=== PATIENT | female | born 1995 | race Caucasian/White ===

== ENCOUNTER → 2018-04-22 | Outpatient (CLI) | payer BC, OTHER ==
[~2018-04-22] MED LIST: HYDR-3730 PO
--- NOTE | 2018-04-22 14:43 | Diagnostic Imaging Report ---
INDICATION: Palpable lumps in the retroareolar left breast as well as the upper outer left breast. The current study was also evaluated with a Computer Aided Detection (CAD) system. No prior studies are available for comparison. 2-D and 3-D unilateral left diagnostic mammography was performed including CC, MLO, mediolateral and exaggerated cc views. In addition a right MLO view was performed. Both breasts are heterogeneously dense, limiting sensitivity of mammography. There is a circumscribed mass in the upper outer left breast approximately 17 mm in diameter and 7 cm from the nipple near the BB marker. A second ovoid mass in the retroareolar left breast is seen. This is circumscribed in approximately 23 mm in size. These may represent cyst. No other masses are seen. No suspicious microcalcifications or lesions are identified. The axilla are unremarkable. IMPRESSION: BI-RADS zero Left breast circumscribed masses, as described. Further evaluation with ultrasound is recommended. ACR BI-RADS Category 0: Incomplete. (Needs additional imaging evaluation). Result letter will be mailed to the patient. Note: At least 10% of breast cancer is not imaged by mammography. Dictated by: Dictated on workstation # [id number]
--- NOTE | 2018-04-22 18:44 | Diagnostic Imaging Report ---
INDICATION: Left breast masses. COMPARISON: Correlation is made with diagnostic mammogram earlier the same day. EXAMINATION: Sonographic interrogation of the left breast was performed. All four quadrants and the retroareolar region were evaluated. FINDINGS: There are numerous circumscribed solid masses throughout the left breast. A mass at the 2 o'clock location, 7 cm from the nipple, measures 1.7 x 1.2 x 1.5 cm. This does show some internal vascularity and does correspond to a palpable lump by the patient. This does appear to be macrolobulated. At the 3:30 location, 7 cm from the nipple, there is a 1.4 x 0.6 x 1.3 cm nodule. This too appears to be solid. Minimal internal vascularity is present. At the 11 o'clock retroareolar location there is an ovoid circumscribed solid mass, measuring 2.3 x 0.9 x 1.8 cm. This does correspond to a palpable nodule by the patient. At the 12 o'clock location, 4 cm from the nipple, there is a 1.5 x 0.6 x 1.0 cm circumscribed solid nodule. No cystic masses are seen. No other abnormality is seen. IMPRESSION: Multiple circumscribed solid masses are identified in the left breast. These are most consistent with multiple fibroadenomas. The nodule at the 2 o'clock and 11 o'clock locations correspond to the patient's palpable abnormalities. Patient should return in six months for additional left breast ultrasound to confirm stability. ACR BI-RADS Category 3: Probably benign findings. Result letter will be mailed to the patient. Note: At least 10% of breast cancer is not imaged by mammography. Dictated by: Dictated on workstation # [id number]
== END ==
LOC: RAD 14:08
PROVIDERS: ATTEND Nurse Practitioner
DX: N63.20 Unspecified lump in the left breast, unspecified quadrant (principal); N63.21 Unspecified lump in the left breast, upper outer quadrant
CPT/HCPCS: 76641

== ENCOUNTER → 2018-10-05 | Outpatient (CLI) | payer OTHER, BC ==
--- NOTE | 2018-10-05 10:25 | Diagnostic Imaging Report ---
INDICATION: Left breast nodules. This study is performed for followup. COMPARISON: Correlation is made with a left breast ultrasound from 04/22/2018. FINDINGS: Multiple circumscribed hypoechoic solid masses in the left breast are again noted. A nodule at the 2 o'clock location 7 cm from the nipple is stable at approximately 18 mm x 12 mm x 17 mm compared to 17 mm x 12 mm x 15 mm previously. A nodule at the 3:30 location 7 cm from the nipple measures approximately 16 mm x 9 mm x 12 mm compared with 14 mm x 6 mm x 13 mm previously. A lobulated nodule at the 12 o'clock location 4 cm from the nipple measures 15 mm x 6 mm x 9 mm compared with 15 mm x 6 mm x 10 mm previously. The nodule at the 11 o'clock location retroareolar measures 24 mm x 9 mm x 20 mm compared to 23 mm x 9 mm x 18 mm previously. No new mass is seen. IMPRESSION: Overall stable solid nodules in the left breast suggestive of fibroadenomas when compared with the exam from 04/22/2018. An additional 6 month followup is recommended to confirm stability. ACR BI-RADS Category 3: Probably benign findings. Dictated by: Dictated on workstation # [id number]
== END ==
LOC: RAD 08:56
PROVIDERS: ATTEND Nurse Practitioner
DX: N63.0 Unspecified lump in unspecified breast (principal)
CPT/HCPCS: 76642

== ENCOUNTER → 2019-04-26 | Outpatient (CLI) | payer OTHER, BC ==
--- NOTE | 2019-04-26 12:09 | Diagnostic Imaging Report ---
INDICATION: Left breast masses. Patient presents for six-month followup. COMPARISON: 10/05/2018. FINDINGS: Four circumscribed lobulated hypoechoic solid masses in the left breast are again noted, suggestive of fibroadenomas. A mass at the 11 o'clock location 1 cm from the nipple measures 2.1 x 2.3 x 1.0 cm compared with 2.3 x 1.0 x 2.1 cm previously. A nodule at the 12 o'clock location 4 cm from the nipple measures 1.6 x 0.6 x 1.0 cm, unchanged from the prior exam. A second nodule at 12 o'clock measures 1.7 x 1.5 x 1.2 cm compared with 1.8 x 1.8 x 1.2 cm on the prior exam. The 3:30 location mass 7 cm from the nipple measures 1.5 x 1.1 x 1.1 cm, stable. No new mass is seen. IMPRESSION: Stable solid nodules in the left breast, consistent with fibroadenomas. These now show 1 year of stability. An additional 6 month followup is recommended to show continued stability. ACR BI-RADS Category 3: Probably benign findings. Dictated by: Dictated on workstation # [id number]
== END ==
LOC: RAD 09:12
PROVIDERS: ATTEND Obstetrics & Gynecology
DX: N63.22 Unspecified lump in the left breast, upper inner quadrant (principal); N63.23 Unspecified lump in the left breast, lower outer quadrant; N60.12 Diffuse cystic mastopathy of left breast
CPT/HCPCS: 76642

== ENCOUNTER → 2019-11-25 | Outpatient (CLI) | payer BC, OTHER ==
--- NOTE | 2019-11-25 10:47 | Diagnostic Imaging Report ---
INDICATION: Six-month followup of left breast nodules. Correlation is made with prior ultrasound from 04/26/2019. There are numerous, macrolobulated solid nodules within the left breast. The largest nodule is located 11 o'clock location 1 cm from the nipple. This has increased in size measuring 2.7 x 1.1 x 2.1 cm compared with 2.1 x 1.0 x 2.3 cm. Solid nodule 12 o'clock location 7 cm from the nipple measures 1.6 x 1.2 x 1.7 cm compared with 1.7 x 1.2 x 1.5 cm. Smaller nodule 12 o'clock location 4 cm from the nipple measures 1.0 x 0.6 x 1.6 cm compared with 1.0 x 0.6 x 1.6 cm on prior. 3:30 nodule 7 cm from the nipple measures 1.4 x 1.2 x 1.3 cm compared with 1.5 x 1.1 x 1.1 cm. No new mass is detected. IMPRESSION: BI-RADS Category 3 Numerous macrolobulated, solid nodules involving the left breast, as described, most suggestive of fibroadenomas. The dominant nodule at 11 o'clock location does show some increase in size. The patient reportedly is and this could be owing to response to hormones. Remaining nodules demonstrate 18 months of stability. One additional six-month followup ultrasound exam is recommended to confirm 2 years of stability. Consideration could be given to performance of an ultrasound-guided biopsy of the dominant nodule at 11 o'clock location. ACR BI-RADS Category 3: Probably benign findings. Result letter will be mailed to the patient. Note: At least 10% of breast cancer is not imaged by mammography. Dictated by: Dictated on workstation # [id number]
== END ==
LOC: RAD 09:23
PROVIDERS: ATTEND Obstetrics & Gynecology
DX: N63.20 Unspecified lump in the left breast, unspecified quadrant (principal); N60.12 Diffuse cystic mastopathy of left breast
CPT/HCPCS: 76642

== ENCOUNTER → 2020-02-09 | Outpatient (CLI) | payer OTHER ==
--- NOTE | 2020-02-09 15:15 | Diagnostic Imaging Report ---
INDICATION: survey. TECHNIQUE: Multiple real-time grayscale images were obtained over the gravid uterus. COMPARISON: None. FINDINGS: There is a single live fetus in a cephalic presentation. heart rate was recorded at 142 BPM. Placenta is anterior. Amniotic fluid volume is normal. Cervical length is 3.6 cm. kidneys, bladder, and stomach are unremarkable. brain is unremarkable. There is a four-chamber heart. There is a three-vessel cord with normal insertion. The spine is unremarkable. Maternal adnexa was not evaluated. Biometrical measurements are as follows: Biparietal 5.05 cm, age 21 weeks 3 days. Head circumference 18.89 cm, age 21 weeks 2 days. Abdominal circumference 15.85 cm, age 21 weeks 0 days. Femur length 3.71 cm, age 21 weeks 6 days. Sonographic estimate age: 21 weeks 3 days. Sonographic estimated date of delivery: 06/18/2020. Estimated Weight: 417 gm (+/- 61 gm). LMP percentile: 79%. heart rate: 142 beats per minute. number: 1 of 1. IMPRESSION: Single live IUP of 21 weeks 3 days gestational age. The estimated date of confinement sonographically is 06/18/2020. Dictated by: Dictated on workstation # [id number]
== END ==
LOC: RAD 11:35
PROVIDERS: ATTEND Obstetrics & Gynecology
DX: Z36.9 Encounter for antenatal screening, unspecified (principal); Z3A.21 21 weeks gestation of pregnancy
CPT/HCPCS: 76805

== ENCOUNTER 2020-06-28 18:52 | Inpatient (IN) | payer OTHER, BC ==
[~2020-06-28] VITALS: Ht 165.1 cm; Wt 105.4 kg
--- NOTE | 2020-06-28 19:05 | NUR ---
ANTHONY ALDANA 39/ presented to [facility] ED, accompanied by eduardo, for INDUCTION. ANTHONY ALDANA weighed, gowned, voided, and to bed. EFHM and TOCO applied, VS taken. ANTHONY ALDANA oriented to bed controls, call light, TV, heat, and A/C controls.
[2020-06-28] MEDS ORDERED: MINERAL OIL CONCENTRATE 99.9% 15 ML UDC TOP PRN (19:30)
[2020-06-28] MEDS ORDERED: MISOPROSTOL 100 MCG (CYTOTEC) TAB PO NR (19:30)
[2020-06-28] MEDS: D5 LR IV SOLUTION 1,000 ML IV SCH ×2 (20:02→23:42)
[2020-06-28 20:23] LABS: BASOPHILS % (AUTO) 0 % (0-10); EOSINOPHILS # (AUTO) 0.1 10^3/uL (0.0-0.3); EOSINOPHILS % (AUTO) 1 % (0-10); HEMATOCRIT 37 % (35-52); HEMOGLOBIN 12.9 G/DL (11.5-16.0); LYMPHOCYTES # (AUTO) 1.8 X 10^3 (1.0-4.0); LYMPHOCYTES % (AUTO) 18 % (12-44); MEAN CORPUSCULAR HEMOGLOBIN 32 PG (25-34); MEAN CORPUSCULAR HGB CONC 35 G/DL (32-36); MEAN CORPUSCULAR VOLUME 92 FL (80-99); MEAN PLATELET VOLUME 11.9 FL (7.4-10.4); MONOCYTES # (AUTO) 0.4 X 10^3 (0.0-1.0); MONOCYTES % (AUTO) 4 % (0-12); NEUTROPHILS # (AUTO) 7.7 X 10^3 (1.8-7.8); NEUTROPHILS % (AUTO) 77 % (42-75); PLATELET COUNT 184 10^3/uL (130-400); RED CELL DISTRIBUTION WIDTH 12.8 % (10.0-14.5)
[2020-06-28 20:30] VITALS: BP 118/89
[2020-06-28 21:09] VITALS: BP 125/85
[2020-06-28 21:48] VITALS: BP 124/78
[2020-06-28] MEDS ORDERED: CATHETER FLUSH 10 ML SYR IV SCH (22:00)
[2020-06-28 22:49] VITALS: BP 115/70
[2020-06-28] MEDS ORDERED: MISOPROSTOL 100 MCG (CYTOTEC) TAB PO SCH (23:30)
[2020-06-28 23:49] VITALS: BP 125/76
[2020-06-29] VITALS (71 sets, daily range): BP systolic 101–176; BP diastolic 55–89
--- NOTE | 2020-06-29 06:24 | NUR ---
Dr. Bonner contacted with request for pain medication per pt request. Contraction pattern as SVE reviewed at this time. orders 1mg of Dilaudid IV. No new orders at this time.
[2020-06-29] MEDS ORDERED: HYDROmorphone 2 MG/ML VIAL (DILAUDID) ONE (06:26)
[2020-06-29] MEDS ORDERED: HYDROmorphone 2 MG/ML VIAL (DILAUDID) IV ONE (06:30)
[2020-06-29] MEDS ORDERED: fentaNYL 2 mcg/ml BUPIVA 0.125 100 ML ONE (07:36)
[2020-06-29] MEDS ORDERED: OXYTOCIN PRE-MIX DRIP 500 ML IV ONE (07:36)
[2020-06-29] MEDS: D5 LR IV SOLUTION 1,000 ML IV SCH ×2 (07:45→15:45)
[2020-06-29] MEDS: OXYTOCIN PRE-MIX DRIP 500 ML IV SCH ×2 (07:46→21:18)
--- NOTE | 2020-06-29 08:42 | History & Physical-OB ---
OB - Chief Complaint & HPI Date/Time Date of Admission: Date of Admission: Jun 28, 2020 at 6:52 pm Date seen by a Provider: Jun 29, 2020 Time Seen by a Provider: 07:45 Chief Complaint/History OB-Reason for Admission/Chief: Induction of Labor Hx : 1 Hx Para: 0 Expected Date of Delivery: Jun 23, 2020 Gestational Age in Weeks: 40 Gestational Age in Days: 5 Indication for induction: post dates Admission Nurse Assessment Rev: Yes History of Labs AB pos Antibody neg RNI RPR NR HBsAg NR HIV NR GC neg GBS neg Allergies and Home Medications Allergies Coded Allergies: No Known Drug Allergies (Unverified , 06/28/20) Home Medications Hydrocodone/Acetaminophen 1 Each Tablet, 1-2 EACH PO Q6H Prescribed by: BENITA HARE on 06/08/15 4217 Patient Home Medication List Home Medication List Reviewed: Yes OB - History Hx of Present Care: Yes Ultrasounds: Normal mid trimester US Obstetrical Complications: None Medical Complications: None Delivery History Hx Blood Disorders: No Adverse Rxn to Tranfusion: No Patient Past Medical History n/a Social History/Family History Recent Infectious Disease Expo: No Alcohol Use: Denies Use Recreational Drug Use: No Immunizations Hepatitis A: Yes Hepatitis B: Yes OB - Admission Exam Physical Exam Vitals: Vital Signs 06/28/20 06/29/20 06/29/20 21:09 01:49 06:47 Temp 36.9 Pulse 76 Resp 16 B/P (MAP) 112/62 (79) Pulse Ox 97 O2 Delivery Room Air HEENT: NCAT Heart: Rhythm Normal Lungs: Clear Abdomen: Gravid Extremities: Normal Reflexes: Normal Cervical Dilatation: 2cm Effacement: 75% Station: -1 Membranes: Intact Heart Rate: 130's Accelerations: Accelerations Present Decelerations: No Decelerations Short Term Variability: Present Nursing Home Variability: Average (6-25) Contractions on Admission: 6-10 Minutes Apart Intensity: Mild Saeed Scoring Tool (Modified) Dilation (cm): 1-2cm (1) Effacement (%): 51-79% (2) Descent/Station: -1,0 (2) Cervix Consistency: Soft (2) Cervix Position: Anterior (2) Subtract 1 point for: Postdate (-1), Nulliparity (-1) Saeed Score: 7 Labs Laboratory Tests Test 06/28/20 19:55 Range/Units White Blood Count 10.0 4.3-11.0 10^3/uL Red Blood Count 4.01 L 4.35-5.85 10^6/uL Hemoglobin 12.9 11.5-16.0 G/DL Hematocrit 37 35-52 % Mean Corpuscular Volume 92 80-99 FL Mean Corpuscular Hemoglobin 32 25-34 PG Mean Corpuscular Hemoglobin Concent 35 32-36 G/DL Red Cell Distribution Width 12.8 10.0-14.5 % Platelet Count 184 130-400 10^3/uL Mean Platelet Volume 11.9 H 7.4-10.4 FL Neutrophils (%) (Auto) 77 H 42-75 % Lymphocytes (%) (Auto) 18 12-44 % Monocytes (%) (Auto) 4 0-12 % Eosinophils (%) (Auto) 1 0-10 % Basophils (%) (Auto) 0 0-10 % Neutrophils # (Auto) 7.7 1.8-7.8 X 10^3 Lymphocytes # (Auto) 1.8 1.0-4.0 X 10^3 Monocytes # (Auto) 0.4 0.0-1.0 X 10^3 Eosinophils # (Auto) 0.1 0.0-0.3 10^3/uL Basophils # (Auto) 0.0 0.0-0.1 10^3/uL OB - Assessment/Plan/Diagnosis Assessment Assessment: induction of labor Admission Dx 24 yo @ 40.6 weeks Post dates induction of labor GBS neg Admission Status: Inpatient Order (span 2 midnights) Reason for Inpatient Admission: Induction of labor at term Plan Plan: Induction Induction Method: per Misoprostol Protocol LISS CASTANEDA DO Jun 29, 2020 8:42 am
[2020-06-29] MEDS ORDERED: LACTATED RINGERS 1,000 ML IV ONE ×2 (09:12→10:12)
[2020-06-29] MEDS ORDERED: BUPIVACAINE 0.25% 30 ML (SENSORCAINE) VIAL ONE (09:31)
[2020-06-29] MEDS ORDERED: LIDOCAINE PF 2% 5 ML (XYLOCAINE) VIAL ONE (09:31)
[2020-06-29] MEDS ORDERED: fentaNYL INJECTION 100 MCG/2 ML AMP ONE (09:32)
[2020-06-29] MEDS ORDERED: LACTATED RINGERS 1,000 ML IV SCH (10:17)
[2020-06-29] MEDS ORDERED: EPIDURAL (fentaNYL 2 MCG/ML BUPIVA 0.125%)100 ML BAG EPI PRN (10:30)
[2020-06-29] MEDS ORDERED: NALOXONE 0.4 MG/ML 1 ML (NARCAN) VIAL IV PRN (10:30)
[2020-06-29] MEDS ORDERED: ONDANSETRON 4 MG/2 ML (SDV) Z0FRAN IV PRN (10:30)
[2020-06-29] MEDS ORDERED: diphenhydrAMINE 50 MG/ML INJ (BENADRYL) IV PRN (10:30)
--- NOTE | 2020-06-29 12:10 | NUR ---
dr connelly called this RN. update given on pitocin infusion, contraction/fhr pattern. no new orders at this time.
[2020-06-29] MEDS ORDERED: LIDOCAINE/EPI 2% 1:200,00 (XYLOCAINE) 10 ML VIAL ONE (15:41)
--- NOTE | 2020-06-29 20:55 | NUR ---
2054: Pericare provided for pt and pt taken out of stirrups. on mom's chest at this time. 2099: Fundus massaged. Fundus is firm and at umbilicus. Scant bleeding noted. No clots expressed at this time. 2114: Fundus massaged. Fundus is firm and at umbilicus. Scant bleeding noted. No clots expressed at this time. 2129: Fundus massaged. Fundus is firm and at umbilicus. Minimal bleeding noted. No clots expressed at this time. 2144: Fundus massaged. Fundus is firm and at umbilicus. Minimal bleeding noted. No clots expressed at this time. 2199: Fundus massaged. Fundus is firm and one under umbilicus. Minimal bleeding noted. No clots expressed at this time. 2230: Fundus massaged. Fundus is firm and one under umbilicus. Minimal bleeding noted. No clots expressed at this time. 2300: Fundus massaged. Fundus is firm and one under umbilicus. Minimal bleeding noted. No clots expressed at this time.
[2020-06-29] MEDS ORDERED: OXYTOCIN PRE-MIX DRIP 500 ML IV SCH (21:16)
--- NOTE | 2020-06-29 21:16 | OB Labor & Delivery Record ---
L&D History Date of Service Date of Service: Jun 29, 2020 History Expected Date of Delivery: Jun 23, 2020 Gestational Age in Weeks: 40 Hx : 1 Hx Para: 0 Complications Events: Routine care Operative Indications (Cesarea: N/A-Vaginal Delivery Intrapartal Events: None L&D Stage1 Stage One Onset of Labor - Date: Jun 29, 2020 Monitors and Tracing Monitor Mode: External Heart Rate: 150 Monitor Accelerations: Uniform Monitor Decelerations: Variable Station: -1 Endoscope Technician Variability: Average (6-10) Short Term Variability: Present Presentation: Vertex Vital Signs VS - Last 72 Hours, by Label 06/28/20 06/28/20 06/28/20 06/28/20 20:30 21:09 21:48 22:49 Temp 37.0 37.0 Pulse 80 101 80 77 Resp 18 18 18 18 B/P (MAP) 118/89 (99) 124/78 (93) 115/70 (85) Pulse Ox 97 97 O2 Delivery Room Air Room Air Room Air Room Air 06/28/20 06/29/20 06/29/20 06/29/20 23:49 00:48 01:49 02:49 Temp 36.9 Pulse 75 71 76 75 Resp 18 18 18 18 B/P (MAP) 125/76 (92) 122/69 (86) 115/69 (84) 134/65 (88) O2 Delivery Room Air Room Air Room Air Room Air 06/29/20 06/29/20 06/29/20 06/29/20 03:47 04:47 05:47 06:47 Pulse 77 74 86 76 Resp 16 16 16 16 B/P (MAP) 109/60 (76) 104/58 (73) 121/74 (90) 112/62 (79) O2 Delivery Room Air Room Air Room Air Room Air 06/29/20 06/29/20 06/29/20 06/29/20 08:10 08:40 09:10 09:40 Temp 37.3 Pulse 76 73 80 77 Resp 18 20 20 20 B/P (MAP) 126/81 (96) 130/76 (94) 125/79 (94) 126/82 (97) Pulse Ox 98 O2 Delivery Room Air Room Air Room Air Room Air 06/29/20 06/29/20 06/29/2020 09:50 09:55 10:00 10:05 Pulse 90 76 83 78 Resp 20 20 20 20 B/P (MAP) 129/83 (98) 134/89 (104) 129/79 (96) 128/81 (97) Pulse Ox 97 97 97 93 O2 Delivery Room Air Room Air Room Air Room Air 06/29/20 06/29/20 06/29/20 06/29/20 10:10 10:15 10:20 10:25 Pulse 100 112 96 75 Resp 20 20 20 20 B/P (MAP) 125/83 (97) 125/83 (97) 127/69 (88) 130/68 (88) Pulse Ox 97 97 97 96 O2 Delivery Room Air Room Air Room Air Room Air 06/29/20 06/29/20 06/29/20 06/29/20 10:30 10:35 10:45 11:00 Temp 36.9 Pulse 83 82 76 81 Resp 20 20 20 18 B/P (MAP) 111/61 (78) 129/80 (96) 128/72 (90) 129/75 (93) Pulse Ox 96 98 98 98 O2 Delivery Room Air Room Air Room Air Room Air 06/29/20 06/29/20 06/29/20 06/29/20 11:25 11:40 11:55 12:10 Pulse 83 77 82 82 Resp 20 20 20 20 B/P (MAP) 117/59 (78) 115/71 (86) 125/74 (91) 115/73 (87) Pulse Ox 99 98 98 98 O2 Delivery Room Air Room Air Room Air Room Air 06/29/20 06/29/20 06/29/20 06/29/20 12:25 12:40 12:50 13:10 Pulse 76 73 89 70 Resp 20 20 20 20 B/P (MAP) 120/73 (89) 120/76 (91) 107/68 (81) 108/59 (75) Pulse Ox 98 97 96 98 O2 Delivery Room Air Room Air Room Air Room Air 06/29/20 06/29/20 06/29/20 06/29/20 13:25 13:40 13:55 14:10 Pulse 68 82 98 76 Resp 20 20 20 20 B/P (MAP) 101/55 (70) 105/64 (78) 137/65 (89) 106/63 (77) Pulse Ox 98 98 99 98 O2 Delivery Room Air Room Air Room Air Room Air 06/29/20 06/29/20 06/29/20 06/29/20 14:25 14:40 14:50 15:05 Temp 37.5 Pulse 98 89 76 100 Resp 20 20 20 20 B/P (MAP) 113/66 (82) 127/72 (90) 133/85 (101) 131/80 (97) Pulse Ox 98 97 97 97 O2 Delivery Room Air Room Air Room Air Room Air 06/29/20 06/29/20 06/29/20 06/29/20 15:25 15:35 15:50 16:05 Pulse 82 82 81 85 Resp 20 20 20 20 B/P (MAP) 127/77 (94) 125/85 (98) 126/78 (94) 134/85 (101) Pulse Ox 97 97 98 99 O2 Delivery Room Air Room Air Room Air Room Air 06/29/20 06/29/20 06/29/20 06/29/20 16:20 16:40 16:55 17:10 Pulse 100 79 81 80 Resp 18 18 18 18 B/P (MAP) 131/83 (99) 105/61 (76) 105/61 (76) 109/60 (76) Pulse Ox 98 98 98 99 O2 Delivery Room Air Room Air Room Air Room Air 06/29/20 06/29/20 06/29/20 06/29/20 17:25 17:40 17:50 18:10 Temp 37.9 Pulse 93 93 89 90 Resp 18 18 18 18 B/P (MAP) 109/60 (76) 109/74 (86) 124/83 (97) 136/82 (100) Pulse Ox 99 99 99 O2 Delivery Room Air Room Air Room Air Room Air 06/29/20 06/29/20 06/29/20 18:20 18:35 18:50 Pulse 93 85 90 Resp 18 18 18 B/P (MAP) 136/82 (100) 134/81 (98) 135/79 (97) Pulse Ox 99 100 99 O2 Delivery Room Air Room Air Room Air Rupture of Membranes Spontaneous Ruture of Membrane: No Amniotic Membrane Rupture Time: 0734 Amniotic Membrane Fluid Desc.: Clear Vaginal Bleeding Description: Normal Show Induction/Anesthesia Epidural Cath Placement - Time: 1004 Progress/Notes Patient admitted for post dates induction at 40.6. Cytotec used PO overnight, and AROM with Pitocin started this morning. She received an epidural and progressed to complete and + 1 station with max dose of 12 mu reached. L&D Stage2 Stage Two Stage II Date: Jun 29, 2020 Monitors and Tracing Monitor Mode: External Heart Rate: 150 Monitor Accelerations: Uniform Monitor Decelerations: Variable Assisted Variability: Average (6-10) Short Term Variability: Present Position: Right Occiput Anterior Presentation: Vertex Cord Descript/Complications Cord Vessel Description: 3 Vessels Delivery Type Delivery Method: Spontaneous Vaginal Anterior Shoulder: Right Episiotomy/Perineal Laceration Laceraction(s)/Extensions: Yes Degree (describe repair) 1st degree vaginal laceration repaired using 3-0 rapide vicryl suture in usual fashion Condition of Infant Delivery 1 minute Comment: 8 5 minute Comment: 9 Notes Live female weight pending, infant to mothers chest skin to skin Condition of Infant Condition of Infant: Living Exam: No Observed Abnormalities Resuscitation Resuscitation: N/A - Spontaneous Resp L&D Stage3 Stage Three Stage III Date: Jun 29, 2020 Pictocin Pitocin Administration mu/min: 12 Pitocin ml/hr: 12 Pitocin Administration Comment: 30 mu wide open after delivery of placenta Placenta Delivery Placenta Delivery: Spontaneous Delivery Summary Summary Estimated blood loss (mL): 350 Attending at delivery: Juana Castaneda DO Condition of Delivery Examined: Cervix Examined, Uterus Explored Post Hemorrhage: No Condition of Mother stable Condition of (s) stable JUANA CASTANEDA DO Jun 29, 2020 21:16
[2020-06-29] MEDS ORDERED: BENZ78AE2 TP (21:21)
[2020-06-29] MEDS ORDERED: IBUP-844 PO (21:21)
[2020-06-29] MEDS ORDERED: DCS100C PO (21:21)
[2020-06-29] MEDS ORDERED: HYDR-3812 PO (21:21)
[2020-06-29] MEDS ORDERED: FERR325T18 PO (21:21)
[2020-06-29] MEDS ORDERED: DIBU30OI TOP (21:21)
--- NOTE | 2020-06-29 21:23 | Discharge Inst-Women's Service ---
Discharge Inst-Women's Serv Depart Medication/Instructions New, Converted or Re-Newed RX: RX on Chart Final Diagnosis PPD 2 NVD Problems Reviewed?: Yes Consults/Follow Up Additional Follow Up: Yes Orders/Referrals Dr. Castaneda in 6 weeks Activity Activity: Activity as Tolerated Driving Instructions: No Driving for 1 Week NO SMOKING: NO SMOKING Nothing Inside Vagina: No Douching, No [place] Diet Discharge Diet: No Restrictions Symptoms to Report to : Bleeding Excessive, Pain Increased, Fever Over 101 Degrees F, Vaginal Bleeding Increase, Questions/Concerns For Any Problems or Questions: Contact Your Physician LISS CASTANEDA DO Jun 29, 2020 21:23
[2020-06-29] MEDS ORDERED: HYDROcodone/APAP 5 MG/325 MG (LORTAB) TAB PO PRN (21:30)
[2020-06-29] MEDS ORDERED: DIBUCAINE (NUPERCAINAL) 1% OINT 30 GM TOP PRN (21:30)
[2020-06-29] MEDS ORDERED: MEASLES,MUMPS,RUBELLA 1 EA INJ SQ ONE (21:30)
[2020-06-29] MEDS ORDERED: TETANUS,DIPTH,PERTUSS P/F (BOOSTRIX) 0.5 ML VIAL IM ONE (21:30)
[2020-06-29] MEDS ORDERED: WITCH HAZEL(TUCKS) 40 EA JAR TOP PRN (21:30)
[2020-06-29] MEDS ORDERED: BENZOCAINE/MENTHOL (DERMOPLAST) 60 ML CAN TP PRN (21:30)
[2020-06-29] MEDS ORDERED: CATHETER FLUSH 10 ML SYR IV SCH (22:00)
[2020-06-29] MEDS: IBUPROFEN 600 MG (MOTRIN) TAB PO SCH (22:17)
--- NOTE | 2020-06-29 23:45 | NUR ---
Pt. now has feeling in legs. Pt. helped to bathroom with nurse assist. Pt. able to void large amount. Pericare provided. Pad and underwear put on. Clean gown put on. Pt. then transferred to wheelchair for room transfer. Pt. tolerated well. No concerns noted.
--- NOTE | 2020-06-29 23:55 | NUR ---
Pt. transferred to room. Settled into new bed. Infant handed to mom.
[2020-06-30 04:15] VITALS: BP 106/63
[2020-06-30] MEDS: IBUPROFEN 600 MG (MOTRIN) TAB PO SCH ×4 (04:17→21:14)
[2020-06-30 06:02] LABS: BASOPHILS % (AUTO) 0 % (0-10); EOSINOPHILS % (AUTO) 0 % (0-10); HEMATOCRIT 34 % (35-52); HEMOGLOBIN 11.4 G/DL (11.5-16.0); LYMPHOCYTES # (AUTO) 1.8 X 10^3 (1.0-4.0); LYMPHOCYTES % (AUTO) 10 % (12-44); MEAN CORPUSCULAR HEMOGLOBIN 32 PG (25-34); MEAN CORPUSCULAR HGB CONC 34 G/DL (32-36); MEAN CORPUSCULAR VOLUME 94 FL (80-99); MEAN PLATELET VOLUME 11.7 FL (7.4-10.4); MONOCYTES # (AUTO) 1.1 X 10^3 (0.0-1.0); MONOCYTES % (AUTO) 6 % (0-12); NEUTROPHILS % (AUTO) 85 % (42-75); PLATELET COUNT 157 10^3/uL (130-400); RED CELL DISTRIBUTION WIDTH 13.2 % (10.0-14.5); WHITE BLOOD COUNT 18.9 10^3/uL (4.3-11.0)
--- NOTE | 2020-06-30 07:23 | Anesthesia-Regional Post-Op ---
Regional Patient Condition Mental Status: Alert, Oriented x3 Circulation: Same as Pre-Op Headache: Absent Sensation: Full Recovery Motor Block: Absent Post Op Complications Complications None Follow Up Care/Instructions Patient Instructions None needed. Anesthesia/Patient Condition Patient is doing well, no complaints, stable vital signs, no apparent adverse anesthesia problems. No complications reported per nursing. MARCOS STEINBERG CRNA Jun 30, 2020 07:23
--- NOTE | 2020-06-30 07:32 | Progress Note ---
Standard Progress Note Progress Notes/Assess & Plan Date Seen by a Provider: Jun 30, 2020 Time Seen by a Provider: 07:31 Progress/Assessment & Plan Patient is without complaint. She is ambulating, voiding, tolerating oral intake well has good pain control. Vital Signs 06/30/20 04:15 Temp 36.7 Pulse 88 Resp 16 B/P (MAP) 106/63 (77) Pulse Ox 97 O2 Delivery Room Air Vital signs are stable. Patient is afebrile. Fundus is firm below the umbilicus and nontender. Extremities show no clubbing cyanosis. There is no Homans sign. Assessment and plan day number 1 status post term spontaneous vaginal delivery doing well. Plan for routine convalescence care GAVIOTA DELGADO MD Jun 30, 2020 07:32
[2020-06-30 09:20] VITALS: BP 130/77
[2020-06-30] MEDS: DOCUSATE SODIUM 100 MG (COLACE) CAP PO SCH ×2 (09:29→21:13)
[2020-06-30] MEDS: PRENATAL VITAMIN 1 EA TAB PO SCH (09:29)
[2020-06-30] MEDS: FERROUS SULF 325 MG (IRON) TAB PO SCH (09:29)
[2020-06-30 13:50] VITALS: BP 119/73
[2020-06-30 21:14] VITALS: BP 121/76
[2020-07-01 03:25] VITALS: BP 120/77
[2020-07-01] MEDS: IBUPROFEN 600 MG (MOTRIN) TAB PO SCH ×2 (03:27→09:01)
[2020-07-01 08:58] VITALS: BP 135/78
[2020-07-01] MEDS: PRENATAL VITAMIN 1 EA TAB PO SCH (09:00)
[2020-07-01] MEDS: FERROUS SULF 325 MG (IRON) TAB PO SCH (09:00)
[2020-07-01] MEDS: DOCUSATE SODIUM 100 MG (COLACE) CAP PO SCH (09:00)
--- NOTE | 2020-07-01 09:15 | NUR ---
Dr Ward here to see pt. Continue with discharge today.
--- NOTE | 2020-07-01 09:47 | Progress Note ---
Standard Progress Note Progress Notes/Assess & Plan Date Seen by a Provider: Jul 01, 2020 Time Seen by a Provider: 09:46 Progress/Assessment & Plan Patient is without complaint. She is ambulating, voiding, tolerating oral intake well has good pain control. Vital Signs 06/30/20 04:15 Temp 36.7 Pulse 88 Resp 16 B/P (MAP) 106/63 (77) Pulse Ox 97 O2 Delivery Room Air Vital signs are stable. Patient is afebrile. Fundus is firm below the umbilicus and nontender. Extremities show no clubbing cyanosis. There is no Homans sign. Assessment and plan day number 1 status post term spontaneous vaginal delivery doing well. Plan for routine convalescence care July 01, 2020 Patient is without complaint. She is ablating, voiding, tolerating oral intake well has good pain control. Patient is requesting discharge home. Vital Signs Date Time Temp Pulse Resp B/P (MAP) Pulse Ox O2 Delivery O2 Flow Rate FiO2 07/01/20 08:58 36.8 97 18 135/78 (97) 97 Room Air 07/01/20 03:25 36.6 82 18 120/77 (91) 97 Room Air 06/30/20 21:14 36.4 91 18 121/76 (91) 97 Room Air 06/30/20 13:50 37.1 110 18 119/73 (88) 97 Room Air Vital signs are stable. Patient is afebrile. Fundus is firm below the umbilicus and nontender. Extremities show no clubbing cyanosis. There is no Homans sign. Assessment and plan day number 2 doing well. Plan is for discharge home with follow-up in clinic GAVIOTA DELGADO MD Jul 01, 2020 09:47
--- NOTE | 2020-07-01 10:39 | NUR ---
Discharge instructions explained to pt with copy provided to pt. Pt notified of need to schedule follow up appointments. Pt verbalizes understanding of instructions and signs to verify. No questions or concerns at this time. Pt awaiting dismissal instructions.
--- NOTE | 2020-07-01 11:45 | NUR ---
Pt ambulates off unit to private vehicle accompanied by S.O., RN, and with all personal belongings. No s/s of distress noted.
== END 2020-07-01 11:45 | disposition home or self-care (01) | DRG 807 ==
LOC: LDRP 18:52
PROVIDERS: ADMIT Obstetrics & Gynecology; ATTEND Obstetrics & Gynecology
PROC: 3E0DXGC Introduction of Other Therapeutic Substance into Mouth and Pharynx, External Approach (ICD-10-PCS; 2020-06-28)
PROC: 10E0XZZ Delivery of Products of Conception, External Approach (ICD-10-PCS; principal; 2020-06-29)
PROC: 0HQ9XZZ Repair Perineum Skin, External Approach (ICD-10-PCS; 2020-06-29)
DX: O48.0 Post-term pregnancy (principal); Z37.0 Single live birth; O70.0 First degree perineal laceration during delivery; Z3A.40 40 weeks gestation of pregnancy; Z23 Encounter for immunization
CPT/HCPCS: 36415; 85025; 86850; 86900; 86901; 90707

== ENCOUNTER → 2020-08-17 | Outpatient (CLI) | payer OTHER, BC ==
[~2020-08-17] MED LIST changes: +ACHD5005 PO; +BENZ78AE5 TP; +DCS100C PO; +DIBU30OI TOP; +FERR325T18 PO; +IBUP-844 PO
--- NOTE | 2020-08-17 11:53 | Diagnostic Imaging Report ---
EXAM: Ultrasound of the left breast. INDICATION: Fibroadenomas The prior left breast ultrasound exam performed on 11/25/2019 noted numerous macrolobulated solid nodules within the left breast. These nodules seems similar in appearance to the prior exam of 04/26/2019 with the exception of the nodule in the 11 o'clock position. That nodule had increased in size when compared to the prior study. The nodule measured 2.7 x 1.1 x 2.1 cm as opposed to 2.1 x 1.0 x 2.3 cm on the previous study. On this exam, the nodule in the 11 o'clock position continues to increase in size. This nodule now measures 3.0 x 1.3 x 2.7 cm. This nodule is similar in appearance to the prior exam and seems similar to the other hypoechoic nodules in the left breast. Consequently I suspect that this is a benign process such as a fibroadenoma. If a tissue diagnosis is desired, then an ultrasound-guided biopsy could be performed. If there is no intervention at this time, then a short-term (3 month) follow-up ultrasound exam would be recommended. The other nodules do not appear to have changed significantly in size. No new abnormality has developed. IMPRESSION: 1.. The solid nodule in the 11 o'clock position of the left breast seen previously has increased in size slightly. This is still most likely a benign process such as a fibroadenoma. Considerations and recommendations as above. 2.. The other hypoechoic nodules within the left breast seem similar to the prior exam. 3. These results were discussed with Dr. Yash Bonner. ACR BI-RADS Category 3: Probably benign findings. Result letter will be mailed to the patient. Note: At least 10% of breast cancer is not imaged by mammography. Dictated by: Dictated on workstation # [id number]
== END ==
LOC: RAD 08:43
PROVIDERS: ATTEND Obstetrics & Gynecology
DX: D24.2 Benign neoplasm of left breast (principal)
CPT/HCPCS: 76642

== ENCOUNTER → 2022-03-26 | Outpatient (CLI) | payer OTHER, BC ==
[~2022-03-26] MED LIST changes: -DCS100C PO; +DOCU-239 PO
== END ==
LOC: LABNPT 16:08
PROVIDERS: ATTEND Nurse Practitioner Women's Health
DX: Z36.9 Encounter for antenatal screening, unspecified (principal)
CPT/HCPCS: 82677; 84702; 86336

== ENCOUNTER → 2022-04-18 | Outpatient (CLI) | payer BC, OTHER ==
--- NOTE | 2022-04-18 11:37 | Diagnostic Imaging Report ---
INDICATION: Supervision of normal . Anatomy scan. TECHNIQUE: Multiple real-time grayscale images were obtained over the gravid uterus. COMPARISON: None FINDINGS: A single live intrauterine gestation is visualized in cephalic presentation. heart tones measure 143 bpm. The placenta is anterior and not low lying. The amniotic fluid has a normal appearance visually although no measurements were provided by the nurse first aid. The cervix is closed and measures 3.8 cm in length. The kidneys, bladder, stomach, ventricles, four-chamber heart, three-vessel cord, spine, and cord insertion are visualized and have a normal appearance. Biometrical measurements are as follows: Biparietal 4.77 cm, age 20 weeks 3 days. Head circumference 17.66 cm, age 20 weeks 2 days. Abdominal circumference 13.98 cm, age 19 weeks 3 days. Femur length 3.22 cm, age 20 weeks 1 days. Sonographic estimate age: 20 weeks 1 days. Sonographic estimated date of delivery: 09/04/22. Estimated Weight: 311 gm (+/- 45 gm). LMP percentile: 32%. heart rate: 143 beats per minute. number: 1 of 1. IMPRESSION: 1. Single live intrauterine gestation in cephalic presentation. Measurements correspond with an estimated age of 20 weeks 1 day with an estimated due date of 09/04/2022. These are within range with clinical dates. Recommend continued followup as indicated. 2. Unremarkable anatomy scan. No abnormalities are visualized. Dictated by: Dictated on workstation # [id number]
== END ==
LOC: RAD 09:44
PROVIDERS: ATTEND Nurse Practitioner Women's Health
DX: Z34.02 Encounter for supervision of normal first pregnancy, second trimester (principal)
CPT/HCPCS: 76805

== ENCOUNTER 2022-08-29 06:30 | Inpatient (IN) | payer OTHER ==
[2022-08-29] VITALS (59 sets, daily range): BP systolic 87–149; BP diastolic 53–86
[~2022-08-29] VITALS: Ht 165.1 cm; Wt 105.3 kg
[2022-08-29] MEDS ORDERED: LIDOCAINE/EPI 2% 1:200,00 (XYLOCAINE) 10 ML VIAL INJ PRN (07:00)
[2022-08-29] MEDS ORDERED: PREN-8 PO (07:08)
[2022-08-29] MEDS: D5 LR IV SOLUTION 1,000 ML IV SCH ×2 (07:47→15:40)
[2022-08-29 07:51] LABS: BASOPHILS % (AUTO) 0 % (0-10); EOSINOPHILS # (AUTO) 0.1 10^3/uL (0.0-0.3); EOSINOPHILS % (AUTO) 1 % (0-10); HEMATOCRIT 38 % (35-52); LYMPHOCYTES # (AUTO) 1.7 10^3/uL (1.0-4.0); LYMPHOCYTES % (AUTO) 22 % (12-44); MEAN CORPUSCULAR HEMOGLOBIN 32 pg (25-34); MEAN CORPUSCULAR HGB CONC 34 g/dL (32-36); MEAN CORPUSCULAR VOLUME 94 fL (80-99); MEAN PLATELET VOLUME 11.8 fL (9.0-12.2); MONOCYTES # (AUTO) 0.5 10^3/uL (0.0-1.0); MONOCYTES % (AUTO) 6 % (0-12); NEUTROPHILS # (AUTO) 5.4 10^3/uL (1.8-7.8); NEUTROPHILS % (AUTO) 70 % (42-75); PLATELET COUNT 168 10^3/uL (130-400); WHITE BLOOD COUNT 7.7 10^3/uL (4.3-11.0)
[2022-08-29] MEDS ORDERED: OXYTOCIN PRE-MIX DRIP 500 ML IV SCH (08:30)
[2022-08-29] MEDS ORDERED: fentaNYL 2 mcg/ml BUPIVA 0.125 100 ML ONE (08:33)
--- NOTE | 2022-08-29 08:33 | History & Physical-OB ---
OB - Chief Complaint & HPI Date/Time Date of Admission: Date of Admission: Aug 29, 2022 at 06:39 Date seen by a Provider: Aug 29, 2022 Time Seen by a Provider: 08:05 Chief Complaint/History OB-Reason for Admission/Chief: Induction of Labor Hx : 2 Hx Para: 1 Expected Date of Delivery: Sep 05, 2022 Gestational Age in Weeks: 39 Gestational Age in Days: 0 Indication for induction: maternal discomfort Admission Nurse Assessment Rev: Yes History of Labs AB neg Antibody neg RI RPR NR HBsAg NR HIV nR GC neg GBS neg Allergies and Home Medications Allergies Coded Allergies: No Known Drug Allergies (Unverified , 06/28/20) Patient Home Medication List Home Medication List Reviewed: Yes Vit W-Ca,Fe,FA(<1 mg) ( Formula) 28 Mg Iron-800 Mcg Tablet, 1 EACH PO DAILY, (Reported) Entered as Reported by: SIMONE KEMP on 08/29/22 0708 Last Action: New Order Discontinued Medications Benzocaine/Menthol (Dermoplast [facility]) 78 Gm Aerosol, 56 ML TP UD PRN for PAIN- SEE INSTRUCTIONS Discontinued Reason: No Longer Taking Prescribed by: LISS CASTANEDA on 06/29/202120 Last Action: Discontinued Dibucaine (Dibucaine) 30 Gm Oint, 0 GM TOP UD PRN for PAIN- SEE INSTRUCTIONS Discontinued Reason: No Longer Taking Prescribed by: LISS CASTANEDA on 06/29/202120 Last Action: Discontinued Docusate Sodium (Dok) 100 Mg Capsule, 100 MG PO BID PRN for CONSTIPATION-1ST LINE Discontinued Reason: No Longer Taking Prescribed by: LISS CASTANEDA on 06/29/202120 Last Action: Discontinued Ferrous Sulfate (Ferrous Sulfate) 325 Mg Tablet, 325 MG PO DAILY Discontinued Reason: No Longer Taking Prescribed by: LISS CASTANEDA on 06/29/202120 Last Action: Discontinued Hydrocodone/Acetaminophen (Hydrocodone-Acetamin 5-325 mg) 1 Each Tablet, 1 TAB PO Q4H PRN for PAIN-MODERATE (5-7) Discontinued Reason: No Longer Taking Prescribed by: LISS CASTANEDA on 06/29/202120 Last Action: Discontinued Ibuprofen (Ibu) 600 Mg Tablet, 600 MG PO Q6HR Discontinued Reason: No Longer Taking Prescribed by: LISS CASTANEDA on 06/29/202120 Last Action: Discontinued OB - History Hx of Present Care: Yes Ultrasounds: Normal mid trimester US Obstetrical Complications: None Medical Complications: None Delivery History Hx Blood Disorders: No Adverse Rxn to Tranfusion: No Patient Past Medical History n/a Immunizations Hepatitis A: Yes Hepatitis B: Yes OB - Admission Exam Physical Exam HEENT: NCAT Heart: Rhythm Normal Lungs: Clear Abdomen: Gravid Extremities: Normal Reflexes: Normal Cervical Dilatation: 4cm Effacement: 75% Station: -1 Membranes: Intact Heart Rate: 130's Accelerations: Accelerations Present Decelerations: No Decelerations Short Term Variability: Present Correction Variability: Average (6-25) Contractions on Admission: 6-10 Minutes Apart Intensity: Mild Saeed Scoring Tool (Modified) Dilation (cm): 3-4cm (2) Effacement (%): 51-79% (2) Descent/Station: -1,0 (2) Cervix Consistency: Soft (2) Cervix Position: Anterior (2) Add 1 point for: Each previous vaginal delivery (1) Saeed Score: 11 Labs Laboratory Tests Test 08/29/22 07:40 Range/Units White Blood Count 7.7 4.3-11.0 10^3/uL Red Blood Count 4.03 3.80-5.11 10^6/uL Hemoglobin 13.0 11.5-16.0 g/dL Hematocrit 38 35-52 % Mean Corpuscular Volume 94 80-99 fL Mean Corpuscular Hemoglobin 32 25-34 pg Mean Corpuscular Hemoglobin Concent 34 32-36 g/dL Red Cell Distribution Width 12.9 10.0-14.5 % Platelet Count 168 130-400 10^3/uL Mean Platelet Volume 11.8 9.0-12.2 fL Immature Granulocyte % (Auto) 0 % Neutrophils (%) (Auto) 70 42-75 % Lymphocytes (%) (Auto) 22 12-44 % Monocytes (%) (Auto) 6 0-12 % Eosinophils (%) (Auto) 1 0-10 % Basophils (%) (Auto) 0 0-10 % Neutrophils # (Auto) 5.4 1.8-7.8 10^3/uL Lymphocytes # (Auto) 1.7 1.0-4.0 10^3/uL Monocytes # (Auto) 0.5 0.0-1.0 10^3/uL Eosinophils # (Auto) 0.1 0.0-0.3 10^3/uL Basophils # (Auto) 0.0 0.0-0.1 10^3/uL Immature Granulocyte # (Auto) 0.0 0.0-0.1 10^3/uL OB - Assessment/Plan/Diagnosis Assessment Assessment: induction of labor Admission Dx 27 yo @ 39 weeks GBS neg Admission Status: Inpatient Order (span 2 midnights) Reason for Inpatient Admission: IOL at 39 weeks Plan Plan: Induction Induction Method: LISS MINOR DO Aug 29, 2022 08:33
[2022-08-29] MEDS ORDERED: BUPIVACAINE 0.25% 30 ML (SENSORCAINE) VIAL ONE (08:45)
[2022-08-29] MEDS ORDERED: fentaNYL INJ 100 MCG/2 ML AMP ONE (08:45)
[2022-08-29] MEDS ORDERED: ONDANSETRON 4 MG/2 ML (SDV) Z0FRAN IV PRN (10:00)
[2022-08-29] MEDS ORDERED: NALOXONE 0.4 MG/ML 1 ML (NARCAN) VIAL IV PRN ×2 (10:00→16:45)
[2022-08-29] MEDS ORDERED: LACTATED RINGERS 1,000 ML IV ONE ×2 (10:00)
[2022-08-29] MEDS ORDERED: fentaNYL 2 mcg/ml BUPIVA 0.125 100 ML EPI SCH (10:00)
[2022-08-29] MEDS ORDERED: fentaNYL INJ 100 MCG/2 ML AMP INJ ONE (10:00)
[2022-08-29] MEDS ORDERED: CATHETER FLUSH 10 ML SYR IV SCH ×2 (14:00→22:00)
--- NOTE | 2022-08-29 16:44 | OB Labor & Delivery Record ---
L&D History Date of Service Date of Service: Aug 29, 2022 History Expected Date of Delivery: Sep 05, 2022 Gestational Age in Weeks: 39 Hx : 2 Hx Para: 1 Complications Events: Routine care Operative Indications (Cesarea: N/A-Vaginal Delivery Intrapartal Events: None L&D Stage1 Stage One Onset of Labor - Date: Aug 29, 2022 Monitors and Tracing Monitor Mode: Internal Heart Rate: 125 Monitor Accelerations: Uniform Monitor Decelerations: Variable Station: -1 Blending Operator Variability: Average (6-10) Short Term Variability: Present Presentation: Vertex Vital Signs VS - Last 72 Hours, by Label 08/29/22 08/29/22 08/29/22 08/29/22 07:40 08:00 08:15 08:30 Temp 36.4 36.3 Pulse 102 93 90 90 Resp 18 18 B/P (MAP) 107/73 (84) 140/79 (99) 117/82 (94) Pulse Ox 99 O2 Delivery Room Air 08/29/22 08/29/22 08/29/22 08/29/22 08:45 08:59 09:01 09:04 Pulse 90 98 90 100 B/P (MAP) 129/70 (89) 134/71 (92) 137/66 (89) 133/79 (97) Pulse Ox 99 99 O2 Delivery Room Air Room Air 08/29/22 08/29/22 08/29/22 08/29/22 09:07 09:10 09:13 09:16 Pulse 93 87 87 91 B/P (MAP) 123/75 (91) 125/80 (95) 125/80 (95) 123/82 (96) Pulse Ox 97 98 O2 Delivery Room Air Room Air Room Air Room Air 08/29/22 08/29/22 08/29/22 08/29/22 09:19 09:22 09:25 09:28 Pulse 96 92 88 83 B/P (MAP) 118/79 (92) 121/84 (96) 126/73 (90) 134/72 (92) Pulse Ox 98 97 98 98 O2 Delivery Room Air Room Air Room Air Room Air 08/29/22 08/29/22 08/29/22 08/29/22 09:32 09:35 09:38 09:41 Pulse 89 86 97 82 B/P (MAP) 135/74 (94) 129/75 (93) 126/68 (87) 129/71 (90) Pulse Ox 97 97 97 96 O2 Delivery Room Air Room Air Room Air Room Air 08/29/22 08/29/22 08/29/22 08/29/22 09:44 09:47 09:50 09:53 Pulse 84 86 88 81 B/P (MAP) 128/73 (91) 115/65 (82) 111/79 (90) 138/63 (88) Pulse Ox 96 O2 Delivery Room Air Room Air Room Air Room Air 08/29/22 08/29/22 08/29/22 08/29/22 09:56 09:59 10:03 10:18 Temp 36.2 Pulse 88 87 87 85 B/P (MAP) 127/73 (91) 118/73 (88) 119/79 (92) 111/73 (86) Pulse Ox 97 98 98 O2 Delivery Room Air Room Air Room Air Room Air 08/29/22 08/29/22 08/29/22 08/29/22 10:33 10:48 11:03 11:18 Pulse 80 80 92 86 B/P (MAP) 123/74 (90) 101/57 (72) 119/75 (90) 97/57 (70) Pulse Ox 98 99 99 99 O2 Delivery Room Air Room Air Room Air Room Air 08/29/22 08/29/22 08/29/22 08/29/22 11:33 11:48 12:15 12:30 Pulse 84 83 84 85 B/P (MAP) 108/65 (79) 115/72 (86) 119/72 (88) 118/70 (86) O2 Delivery Room Air Room Air Room Air Room Air 08/29/22 08/29/22 08/29/22 08/29/22 12:45 13:00 13:15 13:30 Temp 36.6 Pulse 82 83 98 84 B/P (MAP) 118/71 (87) 106/55 (72) 109/62 (78) 87/56 (66) O2 Delivery Room Air Room Air Room Air Room Air 08/29/22 08/29/22 08/29/22 08/29/22 13:45 14:00 14:15 14:25 Temp 36.0 Pulse 82 85 86 B/P (MAP) 93/56 (68) 93/53 (66) 114/72 (86) O2 Delivery Room Air Room Air Room Air 08/29/22 08/29/22 08/29/22 08/29/22 14:30 14:45 15:00 15:30 Pulse 87 117 98 100 B/P (MAP) 109/69 (82) 105/67 (80) 115/75 (88) 119/67 (84) O2 Delivery Room Air Room Air Room Air Room Air 08/29/22 16:00 Temp 36.1 Rupture of Membranes Spontaneous Ruture of Membrane: No Amniotic Membrane Rupture Time: 806 Amniotic Membrane Fluid Desc.: Clear Vaginal Bleeding Description: Normal Show Induction/Anesthesia Epidural Cath Placement - Time: 912 Progress/Notes Patient admitted for IOL, AROM and pitocin augmentation used. Epidural placed and patient progressed to complete and + 2 station. L&D Stage2 Stage Two Stage II Date: Aug 29, 2022 Monitors and Tracing Monitor Mode: Internal Heart Rate: 125 Monitor Accelerations: Uniform Monitor Decelerations: Variable Blending Operator Variability: Average (6-10) Short Term Variability: Present Position: Right Occiput Anterior Presentation: Vertex Cord Descript/Complications Cord Vessel Description: 3 Vessels Delivery Type Delivery Method: Spontaneous Vaginal Anterior Shoulder: Right Episiotomy/Perineal Laceration Laceraction(s)/Extensions: No Condition of Infant Delivery 1 minute Comment: 9 5 minute Comment: 9 Notes Live male infant weight 7lbs 10 oz Condition of Infant Condition of : Living Exam: No Observed Abnormalities Resuscitation Resuscitation: N/A - Spontaneous Resp L&D Stage3 Stage Three Stage III Date: Aug 29, 2022 Pictocin Pitocin Administration mu/min: 6 Pitocin Administration Comment: 30 mu wide open after delivery of placenta Placenta Delivery Placenta Delivery: Spontaneous Delivery Summary Summary Estimated blood loss (mL): 250 Attending at delivery: Liss Castaneda DO Condition of Delivery Examined: Cervix Examined, Uterus Explored Post Hemorrhage: No Condition of Mother stable Condition of Infant (s) stable LISS CASTANEDA DO Aug 29, 2022 16:44
[2022-08-29] MEDS ORDERED: KETOROLAC 30 MG/ML VIAL IV SCH (16:45)
[2022-08-29] MEDS ORDERED: ONDANSETRON 4 MG/2 ML (SDV) Z0FRAN IVP PRN (16:45)
[2022-08-29] MEDS ORDERED: TETANUS,DIPTH,PERTUSS P/F (BOOSTRIX) 0.5 ML VIAL IM SCH (16:45)
[2022-08-29] MEDS ORDERED: MEASLES,MUMPS,RUBELLA 1 EA INJ SC SCH (16:45)
[2022-08-29] MEDS ORDERED: HYDROcodone/APAP 5 MG/325 MG (LORTAB) TAB PO PRN (16:45)
--- NOTE | 2022-08-29 16:45 | Discharge Inst-Women's Service ---
Discharge Inst-Women's Serv Depart Medication/Instructions New, Converted or Re-Newed RX: Transmitted to Pharmacy Final Diagnosis PPD 1 NVD Problems Reviewed?: Yes Consults/Follow Up Additional Follow Up: Yes Orders/Referrals Dr. Castaneda in 6 weeks Activity Activity: Activity as Tolerated Driving Instructions: No Driving for 1 Week NO SMOKING: NO SMOKING Nothing Inside Vagina: No Douching, No Ben Bolt, No Tampons Diet Discharge Diet: No Restrictions Symptoms to Report to : Bleeding Excessive, Pain Increased, Fever Over 101 Degrees F, Vaginal Bleeding Increase, Questions/Concerns For Any Problems or Questions: Contact Your Physician LISS CASTANEDA DO Aug 29, 2022 16:45
[2022-08-29] MEDS ORDERED: IBUP-844 PO (16:46)
[2022-08-29] MEDS ORDERED: ACHD5005 PO (16:46)
[2022-08-29] MEDS ORDERED: DOCU100C37 PO (16:46)
[2022-08-29] MEDS: OXYTOCIN PRE-MIX DRIP 500 ML IV SCH (17:10)
[2022-08-29] MEDS ORDERED: IBUPROFEN 600 MG (MOTRIN) TAB PO ONE (19:12)
[2022-08-29] MEDS: IBUPROFEN 600 MG (MOTRIN) TAB PO SCH (19:16)
[2022-08-29] MEDS: DOCUSATE SODIUM 100 MG (COLACE) CAP PO SCH (21:18)
[2022-08-30] VITALS: BP 125/75
[2022-08-30 05:50] VITALS: BP 104/64
[2022-08-30 06:13] LABS: BASOPHILS % (AUTO) 0 % (0-10); EOSINOPHILS # (AUTO) 0.2 10^3/uL (0.0-0.3); EOSINOPHILS % (AUTO) 1 % (0-10); HEMATOCRIT 37 % (35-52); LYMPHOCYTES # (AUTO) 2.5 10^3/uL (1.0-4.0); LYMPHOCYTES % (AUTO) 22 % (12-44); MEAN CORPUSCULAR HEMOGLOBIN 31 pg (25-34); MEAN CORPUSCULAR HGB CONC 33 g/dL (32-36); MEAN CORPUSCULAR VOLUME 96 fL (80-99); MEAN PLATELET VOLUME 11.9 fL (9.0-12.2); MONOCYTES # (AUTO) 0.6 10^3/uL (0.0-1.0); MONOCYTES % (AUTO) 5 % (0-12); NEUTROPHILS % (AUTO) 71 % (42-75); PLATELET COUNT 162 10^3/uL (130-400); WHITE BLOOD COUNT 11.2 10^3/uL (4.3-11.0)
[2022-08-30] MEDS ORDERED: IBUPROFEN 600 MG (MOTRIN) TAB PO ONE ×2 (09:40→15:08)
[2022-08-30] MEDS: DOCUSATE SODIUM 100 MG (COLACE) CAP PO SCH (09:44)
[2022-08-30] MEDS: IBUPROFEN 600 MG (MOTRIN) TAB PO SCH ×2 (09:44→15:10)
--- NOTE | 2022-08-30 09:51 | Postpartum Progress Note ---
Note Note Day # 1 Subjective: Patient is without complaints. Ambulating, voiding. Tolerating a regular diet without nausea or vomiting. Normal lochia. Pain is well controlled with oral pain medications. Physical Exam: General - Alert and oriented, no apparent distress Abdomen - Soft, appropriately tender to palpation, non-distended, fundus firm at umbilicus Extremities - no edema, negative Rachna's bilaterally Assessment: Post- day # 1, status post vaginal delivery. Recovering well, hemodynamically stable Plan: Routine care. Encourage breast feeding. Encourage ambulation. Ferrous sulfate supplementation. Plan for discharge today Vitals - Labs Vital Signs - I&O Vital Signs Date Time Temp Pulse Resp B/P (MAP) Pulse Ox O2 Delivery O2 Flow Rate FiO2 08/30/22 05:50 36.3 104 64 104/64 (77) 97 08/30/22 00:00 36.3 125 75 125/75 (92) 75 08/29/22 23:47 Room Air 08/29/22 20:00 36.9 102 16 129/75 (93) 100 08/29/22 18:30 102 18 149/64 (92) 08/29/22 18:15 114 18 137/72 (93) 08/29/22 18:00 99 18 129/64 (85) 08/29/22 17:45 92 18 127/60 (82) 08/29/22 17:30 100 18 114/68 (83) 08/29/22 17:15 92 18 115/70 (85) 08/29/22 17:00 96 18 134/73 (93) 08/29/22 16:45 36.2 106 16 142/73 (96) 08/29/22 16:30 131/66 (87) 08/29/22 16:15 36.1 119/70 (86) 08/29/22 16:02 122/81 (95) 08/29/22 16:00 36.1 08/29/22 15:30 100 119/67 (84) Room Air 08/29/22 15:00 98 115/75 (88) Room Air 08/29/22 14:45 117 105/67 (80) Room Air 08/29/22 14:30 87 109/69 (82) Room Air 08/29/22 14:25 36.0 08/29/22 14:15 86 114/72 (86) Room Air 08/29/22 14:00 85 93/53 (66) Room Air 08/29/22 13:45 82 93/56 (68) Room Air 08/29/22 13:30 84 87/56 (66) Room Air 08/29/22 13:15 36.6 98 109/62 (78) Room Air 08/29/22 13:00 83 106/55 (72) Room Air 08/29/22 12:45 82 118/71 (87) Room Air 08/29/22 12:30 85 118/70 (86) Room Air 08/29/22 12:15 84 119/72 (88) Room Air 08/29/22 11:48 83 115/72 (86) Room Air 08/29/22 11:33 84 108/65 (79) Room Air 08/29/22 11:18 86 97/57 (70) 99 Room Air 08/29/22 11:03 92 119/75 (90) 99 Room Air 08/29/22 10:48 80 101/57 (72) 99 Room Air 08/29/22 10:33 80 123/74 (90) 98 Room Air 08/29/22 10:18 85 111/73 (86) 98 Room Air 08/29/22 10:03 36.2 87 119/79 (92) 98 Room Air 08/29/22 09:59 87 118/73 (88) Room Air 08/29/22 09:56 88 127/73 (91) 97 Room Air 08/29/22 09:53 81 138/63 (88) Room Air I & O 08/30/22 07:00 Intake Total 2000 ml Balance 2000 ml Labs Laboratory Tests 08/30/22 05:50: White Blood Count 11.2H, Red Blood Count 3.83, Hemoglobin 12.0, Hematocrit 37, Mean Corpuscular Volume 96, Mean Corpuscular Hemoglobin 31, Mean Corpuscular Hemoglobin Concent 33, Red Cell Distribution Width 13.0, Platelet Count 162, Mean Platelet Volume 11.9, Immature Granulocyte % (Auto) 0, Neutrophils (%) (Auto) 71, Lymphocytes (%) (Auto) 22, Monocytes (%) (Auto) 5, Eosinophils (%) (Auto) 1, Basophils (%) (Auto) 0, Neutrophils # (Auto) 8.0H, Lymphocytes # (Auto) 2.5, Monocytes # (Auto) 0.6, Eosinophils # (Auto) 0.2, Basophils # (Auto) 0.0, Immature Granulocyte # (Auto) 0.1 MITUL MCCORMACK APRN Aug 30, 2022 09:51
[2022-08-30 09:55] VITALS: BP 135/70
--- NOTE | 2022-08-30 10:07 | Anesthesia-Regional Post-Op ---
Regional Patient Condition Mental Status: Alert, Oriented x3 Circulation: Same as Pre-Op Headache: Absent Sensation: Full Recovery Motor Block: Absent Post Op Complications Complications None Follow Up Care/Instructions Patient Instructions None needed. Anesthesia/Patient Condition Patient is doing well, no complaints, stable vital signs, no apparent adverse anesthesia problems. No complications reported per nursing. JULIO BERGMAN DO Aug 30, 2022 10:07
[2022-08-30 12:15] VITALS: BP 109/67
[2022-08-30] MEDS: OXYTOCIN PRE-MIX DRIP 500 ML IV SCH (12:42)
[2022-08-30] MEDS ORDERED: IBUPROFEN 600 MG (MOTRIN) TAB PO SCH (16:45)
== END 2022-08-30 18:10 | disposition home or self-care (01) | DRG 807 ==
LOC: LDRP 06:39
PROVIDERS: ADMIT Obstetrics & Gynecology; ATTEND Obstetrics & Gynecology
PROC: 10E0XZZ Delivery of Products of Conception, External Approach (ICD-10-PCS; principal; 2022-08-29)
PROC: 10907ZC Drainage of Amniotic Fluid, Therapeutic from Products of Conception, Via Natural or Artificial Opening (ICD-10-PCS; 2022-08-29)
DX: O80 Encounter for full-term uncomplicated delivery (principal); Z37.0 Single live birth; Z3A.39 39 weeks gestation of pregnancy
CPT/HCPCS: 36415; 85025; 86780; 86850; 86900; 86901; 94664